=== PATIENT | male | born 1955 | race Caucasian/White ===

== ENCOUNTER 2017-03-30 10:33 | Emergency (ER) | payer BC ==
[~2017-03-30] VITALS: Ht 179.1 cm; Wt 87.0 kg
[2017-03-30 10:38] VITALS: TEMP 36.7; Ht 179.1 cm; Wt 87.0 kg
--- NOTE | 2017-03-30 11:02 | EMERGENCY ROOM VISIT NOTE ---
History Report prepared by Harish: Viry Meza Under the Supervision of: Dr. Josue Maradiaga M.D. First contact with patient: 10:50 Chief Complaint: PAIN (GENERALIZED) Stated Complaint: BRUISED RIB CAGE, SCIATIC History of Present Illness The patient is a 61 year old male who presents to the Emergency Room with complaints of constant right sided rib pain beginning just [employer]. 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 He notes that he injured his right side and is having bruising over his right rib cage. He complains of lower back pain and states that he has a history of a herniated disc and recently had an ISABEL injection and is concerned that he now has sciatica. The patient denies any incontinence, leg pain, numbness, and tingling. The patient states that he is here for x-rays. For this reason he was sent for x-rays. He also has a large amount of bruising to his knee and ankle. There is no evidence of acute fracture dislocation. I stressed to the patient the need to follow-up with orthopedics back home. Patient was in agreement with the treatment plan. Source of History: patient Onset: today Position: other (right ribs) Quality: other (bruising) Associated Symptoms: + back pain, No numbness Note: The patient denies any incontinence, leg pain, and tingling. Review of Systems See HPI for pertinent positives & negatives. A total of 10 systems reviewed and were otherwise negative. Past Medical & Surgical Medical Problems: (1) Mitochondrial disease Family History No pertinent family history stated. Social History Smoking Status: Never Smoker Drug Use: none Current/Historical Medications Scheduled Albuterol Hfa (Ventolin Hfa), 2-4 PUFFS INH Q6H Amoxicillin (Amoxil), 500 MG PO UD Amoxicillin & Pot Clavulanate (Augmentin 875-125 mg), 1 TAB PO UD Aspirin (Aspir-81), 1 TAB PO BID Azelastine Hcl-Fluticasone Pro (Dymista), 1 SPRY VERONICA BID Budesonide/Formoterol Fumarate (Symbicort 160-4.5 Mcg/Act), 1 PUFF INH BID Cetirizine Hcl (Zyrtec), 10 MG PO DAILY Cholecalciferol (Vitamin D 400 Iu), 400 INTER.UNIT PO DAILY Cyanocobalamin (Vitamin B-12), 500 MCG PO DAILY Fluticasone Prop/Salmeterol (Advair Diskus 250/50 60 Dose), 1 PUFF INH BID Ibuprofen Tab (Motrin), 600 MG PO TID Ipratropium Denver (Nasal) (Ipratropium Denver), 1 SPRAY INH BID Levocarnitine (Levocarnitine), 300 MG PO DAILY Lisinopril (Zestril), 1 TAB PO Q2D Lisinopril (Prinivil), 5 MG PO Q2D Montelukast Sodium (Singulair), 10 MG PO DAILY Multiple Vitamin (Multivitamin), 1 TAB PO DAILY Omeprazole (Prilosec), 20 MG PO DAILY Pancrelipase (Lipase-Protease- (Creon 20222), 2 CAP PO DAILY Tiotropium Denver (Spiriva Handihaler), 1 CAP INH DAILY [cyto q max], 100 MG PO DAILY Scheduled PRN Acetaminophen W/ Codeine (Tylenol W/Codeine #3), 1 TAB PO UD PRN for Pain Tramadol (Ultram), 50 MG PO Q8H PRN for Pain Physical Exam Vital Signs Date Time Temp Pulse Resp B/P (MAP) Pulse Ox O2 Delivery O2 Flow Rate FiO2 03/30/17 13:45 76 157/87 03/30/17 12:52 58 150/87 97 Room Air 03/30/17 10:38 36.7 71 18 161/84 97 Room Air Physical Exam GENERAL: Patient is a healthy-appearing well-nourished male HEAD: Normocephalic atraumatic EYES: Ocular movements intact pupils equal and react to light OROPHARYNX mucous membranes are moist no exudates present no erythema or edema present NECK: Supple no nuchal rigidity CHEST: Good equal expansion LUNGS: Clear and equal to auscultation CARDIAC: Normal S1 and S2 ABDOMEN: Soft nontender no guarding BACK: No CVA tenderness. No midline tenderness. EXTREMITIES: He has a large amount of swelling and erythema at right knee and ankle. No pain with any range of motion to the knee and ankle. NEURO: Patient is following commands and answering questions appropriately. Alert and oriented x3 Cranial Nerves 2-12 grossly intact. He is able to walk on tip toes and heels, he has no saddle anesthesia. Medical Decision & Procedures ER Provider Diagnostic Interpretation: Radiology results as stated below per my review and radiologist interpretation: RIGHT RIBS UNILATERAL WITH PA CHEST FINDINGS: The erect chest reveals no pneumothorax. There is no focal pulmonary consolidation. No right-sided rib fractures are visualized. There is a trace right pleural effusion. There is a 1 cm right midlung zone pulmonary nodule versus scapular sclerotic lesion/summation. IMPRESSION: 1. No acute fractures 2. No pneumothorax 3. Trace right pleural effusion 4. 1 cm right midlung zone nodule versus overlying summation Electronically signed by: Renato Henley M.D. 03/30/2017 12:05 PM Dictated Date/Time: 03/30/2017 12:03 PM L-SPINE MIN 4 VIEWS ROUTINE FINDINGS: No acute fractures or traumatic subluxations are visualized. There are moderate multilevel degenerative changes most pronounced the L5-S1 level. There is facet joint arthropathy. There is mild fecal retention. IMPRESSION: 1. No acute fractures or traumatic subluxations 2. Multilevel degenerative change 3. Mild fecal retention Electronically signed by: Renato Henley M.D. 03/30/2017 12:02 PM Dictated Date/Time: 03/30/2017 12:02 PM L-SPINE MIN 4 VIEWS ROUTINE FINDINGS: No acute fractures or traumatic subluxations are visualized. There are moderate multilevel degenerative changes most pronounced the L5-S1 level. There is facet joint arthropathy. There is mild fecal retention. IMPRESSION: 1. No acute fractures or traumatic subluxations 2. Multilevel degenerative change 3. Mild fecal retention Electronically signed by: Renato Henley M.D. 03/30/2017 12:02 PM Dictated Date/Time: 03/30/2017 12:02 PM RIGHT ANKLE MIN 3 VIEWS ROUTINE DISCUSSION: There is lateral soft tissue swelling. No acute fractures are visualized. The ankle mortise appears intact. IMPRESSION: Soft tissue swelling. No acute fractures. Electronically signed by: Renato Henley M.D. 03/30/2017 12:06 PM Dictated Date/Time: 03/30/2017 12:06 PM ED Course 1050: Past medical records reviewed. The patient was evaluated in room C3. A complete history and physical examination was performed. 1312: I reevaluated and updated the patient. 1323: Upon reexamination the patient is doing well. I discussed results and treatment plan with the patient. He verbalizes agreement and understanding. The patient is ready for discharge. Medical Decision Differential diagnosis: Etiologies such as fracture, dislocation, neurovascular compromise, compartment syndrome, soft tissue injury, as well as others were entertained. Medication Reconcilliation Current Medication List: was personally reviewed by me Blood Pressure Screening Patient's blood pressure: Elevated blood pressure Blood pressure disposition: Referred to PCP Impression Primary Impression: Right knee pain Scribe Attestation The scribe's documentation has been prepared under my direction and personally reviewed by me in its entirety. I confirm that the note above accurately reflects all work, treatment, procedures, and medical decision making performed by me. Departure Information Dispostion Home / Self-Care Referrals No Doctor, Assigned (PCP) Forms HOME CARE DOCUMENTATION FORM, IMPORTANT VISIT INFORMATION, WORK / SCHOOL INSTRUCTIONS Patient Instructions Hilary [facility] Additional Instructions Need follow up with Orthopaedic physician You were found to have an elevated blood pressure today (>120 sytolic or >90 diastolic). Per medicare guidelines, you need to follow up with this blood pressure screening with your Primary Care Physician (PCP). For a new PCP call [phone]. Take 600 mg Ibuprofen every 6 hours You have been examined and treated today on an emergency basis only. This is not a substitute for, or an effort to provide, complete comprehensive medical care. It is impossible to recognize and treat all injuries or illnesses in a single emergency department visit. It is therefore important that you follow up closely with your PCP. Call as soon as possible for an appointment. Thank you for your time and consideration. I look forward to speaking with you again soon. Please don't hesitate to call us if you have any questions. Problem Qualifiers Primary Impression: Right knee pain Chronicity: acute Qualified Codes: M25.561 - Pain in right knee
--- NOTE | 2017-03-30 12:04 | DIAGNOSTIC IMAGING REPORT ---
L-SPINE MIN 4 VIEWS ROUTINE CLINICAL HISTORY: Low back pain COMPARISON STUDY: No previous studies for comparison. FINDINGS: No acute fractures or traumatic subluxations are visualized. There are moderate multilevel degenerative changes most pronounced the L5-S1 level. There is facet joint arthropathy. There is mild fecal retention. IMPRESSION: 1. No acute fractures or traumatic subluxations 2. Multilevel degenerative change 3. Mild fecal retention Electronically signed by: Renato Henley M.D. 03/30/2017 12:02 PM Dictated Date/Time: 03/30/2017 12:02 PM
--- NOTE | 2017-03-30 12:06 | DIAGNOSTIC IMAGING REPORT ---
RIGHT RIBS UNILATERAL WITH PA CHEST CLINICAL HISTORY: Right rib pain COMPARISON STUDY: No previous studies for comparison. FINDINGS: The erect chest reveals no pneumothorax. There is no focal pulmonary consolidation. No right-sided rib fractures are visualized. There is a trace right pleural effusion. There is a 1 cm right midlung zone pulmonary nodule versus scapular sclerotic lesion/summation. IMPRESSION: 1. No acute fractures 2. No pneumothorax 3. Trace right pleural effusion 4. 1 cm right midlung zone nodule versus overlying summation Electronically signed by: Renato Henley M.D. 03/30/2017 12:05 PM Dictated Date/Time: 03/30/2017 12:03 PM
--- NOTE | 2017-03-30 12:07 | DIAGNOSTIC IMAGING REPORT ---
RIGHT KNEE 1 OR 2 VIEWS ROUTINE CLINICAL HISTORY: Right knee pain COMPARISON: None. DISCUSSION: No acute fractures are visualized. There is fragmentation of the lateral tibial spine, a finding which is likely chronic. No joint effusion is evident. IMPRESSION: No acute fractures identified. Electronically signed by: Renato Henley M.D. 03/30/2017 12:06 PM Dictated Date/Time: 03/30/2017 12:05 PM
--- NOTE | 2017-03-30 12:08 | DIAGNOSTIC IMAGING REPORT ---
RIGHT ANKLE MIN 3 VIEWS ROUTINE CLINICAL HISTORY: Right ankle pain COMPARISON: None. DISCUSSION: There is lateral soft tissue swelling. No acute fractures are visualized. The ankle mortise appears intact. IMPRESSION: Soft tissue swelling. No acute fractures. Electronically signed by: Renato Henley M.D. 03/30/2017 12:06 PM Dictated Date/Time: 03/30/2017 12:06 PM
[2017-03-30 12:52] VITALS: O2SAT 97
[2017-03-30] MEDS ORDERED: TRAM-10 PO (12:52)
[2017-03-30] MEDS ORDERED: PANC1200 PO (12:52)
[2017-03-30] MEDS ORDERED: AMOX500C3 PO ×2 (12:52)
[2017-03-30] MEDS ORDERED: IBUP-1427 PO (12:52)
[2017-03-30] MEDS ORDERED: CYAN500T PO (12:52)
[2017-03-30] MEDS ORDERED: MONT1TAB3 PO (12:52)
[2017-03-30] MEDS ORDERED: OMEP20CA9 PO (12:52)
[2017-03-30] MEDS ORDERED: LEVO1SOL PO (12:52)
[2017-03-30] MEDS ORDERED: SPRIN/30 INH (12:52)
[2017-03-30] MEDS ORDERED: ADVIN25/60 INH (12:52)
[2017-03-30] MEDS ORDERED: VNTHFA/IN INH (12:52)
[2017-03-30] MEDS ORDERED: ACET-1101 PO (12:52)
[2017-03-30] MEDS ORDERED: AMOX875T PO (12:52)
[2017-03-30] MEDS ORDERED: SYMIN INH (12:52)
[2017-03-30] MEDS ORDERED: ASPI-232 PO (12:52)
[2017-03-30] MEDS ORDERED: AZEL30SP NAE (12:52)
[2017-03-30] MEDS ORDERED: LISI-789 PO (12:52)
[2017-03-30] MEDS ORDERED: MULTTAB58 PO (12:52)
[2017-03-30] MEDS ORDERED: CHOL400C7 PO (12:52)
[2017-03-30] MEDS ORDERED: LISI5TAB PO (12:52)
[2017-03-30] MEDS ORDERED: CETI10TA10 PO (12:52)
[2017-03-30] MEDS ORDERED: IPRA0.06 INH (12:52)
[2017-03-30] MEDS ORDERED: [UNRECOGNIZED DRUG - OTHER] PO (13:01)
[2017-03-30 13:45] VITALS: BP 157/87; PULSE 76
== END 2017-03-30 13:45 | disposition home or self-care (01) ==
LOC: C.EDB 10:35 → C.EDC 13:45
DX: M25.561 Pain in right knee (principal); R07.81 Pleurodynia; S20.211A Contusion of right front wall of thorax, initial encounter; S80.01XA Contusion of right knee, initial encounter; S90.01XA Contusion of right ankle, initial encounter; X58.XXXA Exposure to other specified factors, initial encounter; M54.5 Low back pain; E88.49 Other mitochondrial metabolism disorders; Z79.82 Long term (current) use of aspirin